=== PATIENT | female | born 2000 | race Caucasian/White ===

== ENCOUNTER 2022-04-24 11:09 | Emergency (ER) | payer OTHER, SELFPAY ==
--- NOTE | ~2022-04-24 | CT_ITS ---
EXAMINATION: CT abdomen pelvis wo con DATE: 04/24/2022 15:35 INDICATION: Left flank pain. TECHNIQUE: Computed tomography (CT) of the abdomen and pelvis was performed without intravenous contr ast. Automated exposure control and iterative reconstruction technique were employed. The dose-length product was 173.87 mGy-cm. COMPARISON: None. FINDINGS: The visualized portions of the lung bases are clear without pneumonia or pleural effusion. The heart size is normal. No pericardial effusion. The liver, and gallbladder are normal. The spleen is small with calcifications. The pancreas, adrenal glands, and right kidney are normal. There is mil d left hydronephrosis. There is a 3 mm stone in proximal left ureter. There are no dilated loops of b owel. The appendix is not visualized. There are no pathologically enlarged lymph nodes. There is no f ree intraperitoneal fluid. There is mild lumbar spondylosis. IMPRESSION: 1. 3 mm stone in proximal left ureter with mild left hydronephrosis. Reviewed, dictated and finalized at location A. TIC BIOLOGIST
--- NOTE | ~2022-04-24 | XR_ITS ---
EXAMINATION: XR abdomen/kub 1V DATE: 04/24/2022 16:29 INDICATION: 2 mm proximal left ureteral stone. TECHNIQUE: A supine view of the abdomen on 2 radiographs was obtained. COMPARISON: CT dated 04/24/2022 FINDINGS: A 3 mm proximal left ureteral stone can be seen along the caudal margin of the left transverse proces s of L3. Tiny phlebolith in the left hemipelvis. No other urolithiasis. Normal bowel gas pattern. Yana g bases are clear. Heart size is normal. Mild lumbar dextrocurvature. IMPRESSION: 1. 3 mm proximal left ureteral stone along the inferior margin of the left transverse process of L3. Reviewed, dictated and finalized at location A. ENT SUPPORT ADVISOR IMPRESSION: 1. 3 mm proximal left ureteral stone along the inferior margin of the left balbuena sverse process of L3.
[2022-04-24 11:29] VITALS: BP 104/68; PULSE 67; RESP 16; TEMP 36.6; O2SAT 99
[2022-04-24 14:02] VITALS: BP 107/75; PULSE 81; RESP 14; TEMP 36.4; O2SAT 96
--- NOTE | 2022-04-24 14:37 | ED.FEMALEGU ---
HPI - Female Genitourinary General Chief complaint: Urogenital-Female Stated complaint: flank pain Time Seen by Provider: 04/24/22 14:09 History of Present Illness HPI Narrative: This is a 21-year-old female comes in with 2 days of left flank pain and urinary urgency and frequency. She states she has had a kidney stone in the past and feels that her symptoms are very similar today. Pain remains in the left flank and does not radiate. There is no abdominal pain. She also endorses nausea and vomiting prior to arrival. She feels like she was vomiting due to the pain. Patient states she was at her class when her pain started yesterday and became much worse today so she came to the ED. Patient denies any fevers, chills, chest pain, shortness of breath. Related Data Allergies Allergy/AdvReac Type Severity Reaction Status Date / Time No Known Allergies Allergy Verified 04/24/22 11:34 Review of Systems Review of Systems: CONSTITUTIONAL: Denies fever, chills, or sweats. EYES: Denies visual changes, redness, or discharge. ENT: Denies rhinorrhea, congestion, sore throat, or otalgia. CARDIOVASCULAR: Denies chest pain, palpitations, or edema. RESPIRATORY: Denies cough or dyspnea. GASTROINTESTINAL: Endorses left leg pain. Endorses nausea and vomiting. Denies abdominal pain or diarrhea. GENITOURINARY: Endorses frequency and urgency. Denies dysuria or hematuria. SKIN: Denies rash or itching. MUSCULOSKELETAL: Denies back pain, joint pain, or myalgia. NEUROLOGIC: Denies headache, numbness, dizziness, or weakness. PSYCHIATRIC: Denies anxiety or depression. Exam Narrative: GENERAL: Well-appearing, well-nourished, and in no acute distress. HEAD: Normocephalic, atraumatic. EYES: PERRLA and EOMI. ENT: Nares clear, no rhinorrhea or epistaxis. Mucous membranes moist. Oropharynx without tonsillar hypertrophy exudate or other lesions. NECK: Supple. No adenopathy or masses. CHEST: No respiratory distress. Clear to auscultation. No wheezes rales or rhonchi HEART: Regular rate and rhythm. No murmur heard. Normal peripheral pulses. ABDOMEN: Left flank tenderness to palpation. Soft, nontender, nondistended, normal active bowel sounds. EXTREMITIES: Normal range of motion. No edema. SKIN: Warm, dry, no rash. NEURO: Alert and oriented x3. No focal deficits. PSYCH: Normal mood and affect. Course Course Emergency Course: 1607: Reeval: Pain is markedly improved to a 1 out of 10. Updated on status of the CT showing a 3 mm stone 162: Discussed the case with Dr. Junior (urology). He has reviewed the patient's labs and imaging. Updated on the status of her white count of 21,000 and left proximal ureter stone. Due to her being afebrile and able to tolerate p.o., feels that shared decision making with patient for discharge home is possible at this point. She is afebrile here and has been afebrile at home. If the patient is more comfortable we can also admit for observation and IV antibiotics. Vital Signs Vital signs: Vital Signs Temperature 98 F 04/24/22 11:29 Pulse Rate 67 04/24/22 11:29 Respiratory Rate 16 04/24/22 11:29 Blood Pressure 104/68 04/24/22 11:29 Pulse Oximetry 99 04/24/22 11:29 Oxygen Delivery Room Air 04/24/22 11:29 Temperature 97.6 F 04/24/22 14:02 Pulse Rate 81 04/24/22 14:02 Respiratory Rate 14 04/24/22 14:02 Blood Pressure 107/75 04/24/22 14:02 Pulse Oximetry 96 04/24/22 14:02 Oxygen Delivery Room Air 04/24/22 14:02 MDM - Female Genitourinary MDM Narrative Medical decision making narrative: This is a 21-year-old female who presents with chief complaint of left flank pain and urinary urgency x2 days. She has had a kidney stone in the past and feels the same today. Exam shows left flank tenderness to palpation. No other abdominal pain present. Vitals are stable. CBC shows white count of 20.1. Electrolytes and kidney function are normal. UA shows evidence of urinary tract
[2022-04-24] MEDS: ONDANSETRON INJ 4 MG/2 ML VIAL IV PUSH (15:03)
[2022-04-24] MEDS: MORPHINE SULFATE (*CRX) 4 MG/ML INJ IV PUSH (15:06)
[2022-04-24] MEDS: SODIUM CHLORIDE 0.9% IV 1,000 ML 999 ML IV CONT (15:08)
[2022-04-24 15:33] LABS: Basophils Absolute Auto 0.1 K/mm3 (0.0-0.1); Basophils Percent Auto 0.3 % (0.2-1.2); Hematocrit 45.5 % (37.0-47.0); Hemoglobin 15.4 g/dL (12.0-15.0); Immature Granulocyte Absolute 0.15 K/mm3 (0.00-0.031); Immature Granulocyte Percent A 0.7 % (0-0.5); Immature Platelet Fraction Pct 6.5 % (0.9-11.2); Lymphocytes Absolute Auto 0.78 K/mm3 (0.9-3.2); Lymphocytes Percent Auto 3.7 % (18.3-44.2); Mean Corpuscular HGB Conc 33.8 g/dl (32-36); Mean Corpuscular Hemoglobin 29.7 pg (26-34); Mean Corpuscular Volume 87.7 fl (80-100); Mean Platelet Volume 11.5 fl (7.4-10.4); Monocytes Absolute Auto 0.6 K/mm3 (0.1-0.6); Monocytes Percent Auto 2.7 % (2.6-8.5); Neutrophils Absolute Auto 19.4 K/mm3 (1.3-6.7); Neutrophils Percent Auto 92.6 % (45.5-73.1); Platelet Count Result 297 k/mm3 (150-375); Red Blood Count 5.19 M/mm3 (4.2-5.4); Red Cell Distribution Width 12.5 % (11.5-14.5)
[2022-04-24 15:34] LABS: Alanine Aminotransferase 18 U/L (6-35); Albumin Level 5.3 g/dL (3.7-5.6); Alkaline Phosphatase 67 U/L (45-116); Anion Gap 10 mmol/L (8-16); Aspartate Amino Transferase 25 U/L (14-36); Bilirubin,Total 0.8 mg/dL (0.2-1.3); Blood Urea Nitrogen 11 mg/dL (8-21); Calcium 9.8 mg/dL (8.9-10.7); Carbon Dioxide 23 mmol/L (22-30); Chloride 102 mmol/L (98-107); Estimated CRCL calculation 120 ml/min; Estimated Glomerular Filt Rate > 60; Glucose 110 mg/dL (65-110); Potassium 4.1 mmol/L (3.4-5.0); Sodium 135 mmol/L (134-143)
[2022-04-24 16:05] LABS: Appearance Urine Slightly Cloudy (Clear); Bilirubin Urine 1+ (Negative); Blood Urine 3+ (Negative); Color Urine Yellow (Yellow); Glucose Urine UA Negative (Negative); Ketones Urine 2+ mg/dL (Negative); Leukocyte Esterase Ur 1+ LEU/UL (Negative); Nitrate Urine Negative (Negative); Protein Urine 2+ mg/dL (Negative); Specific Grav Ur 1.015 (1.001-1.035); Urobilinogen Urine 0.2 mg/dL (<2.0); pH Urine 8.5 (5.0-9.0)
[2022-04-24 16:11] LABS: Mucus Urine Heavy /lpf; RBC Urine >75 /hpf (0-2); Squamous Epithelial Cell Urine Many /hpf (Few); WBC Urine 31-50 /hpf
[2022-04-24 16:12] LABS: Add Urine Microscopic? YES
[2022-04-24 16:23] VITALS: BP 130/81; PULSE 72; RESP 15; TEMP 37; O2SAT 98
[2022-04-24 17:41] LABS: Lactic Acid Reflex 1.3 mmol/L (0.7-2.0)
[2022-04-24 18:19] VITALS: BP 114/82; PULSE 71; RESP 14; TEMP 36.6; O2SAT 100
== END 2022-04-24 18:21 | disposition home or self-care (01) ==
PROVIDERS: Emergency Medicine; Emergency Provider Physician Assistant
DX: N13.2 Hydronephrosis with renal and ureteral calculous obstruction (principal); N39.0 Urinary tract infection, site not specified
CPT/HCPCS: 36415; 74018; 74176; 80053; 81001; 81025; 83605; 85025; 85055; 87040; 87077; 87086; 87186; 96361; 96365; 96375; 99284; J0696; J2270; J2405; J7030